=== PATIENT | male | born 1980 | race Caucasian/White ===

== ENCOUNTER → 2024-11-21 | Outpatient (BNVA) | payer OTHER, SELFPAY | END | disposition home or self-care (01) | PROVIDERS: PCP Family Medicine; Referring Provider Family Medicine; Visit Provider Urology | DX: N52.9 Male erectile dysfunction, unspecified (principal); N40.1 Benign prostatic hyperplasia with lower urinary tract symptoms; N13.8 Other obstructive and reflux uropathy; R39.198 Other difficulties with micturition; E66.9 Obesity, unspecified; Z68.38 Body mass index [BMI] 38.0-38.9, adult | CPT/HCPCS: 99203; G0463 ==

== ENCOUNTER 2025-03-26 07:40 | Day surgery (SDC) | payer OTHER, SELFPAY ==
[2025-03-25 11:23] VITALS: BMI 38.0
--- NOTE | 2025-03-25 14:38 | SUR.PREOP ---
Health history reviewed with Dr Le.
[2025-03-26] VITALS (7 sets, daily range): BP systolic 98–144; BP diastolic 71–103; PULSE 58–68; RESP 14–20; TEMP 36.5–36.7; O2SAT 95–99; BMI 39.9
--- NOTE | 2025-03-26 09:15 | CHAP ---
Visited with patient and prayed concerning his upcoming procedure.
--- NOTE | 2025-03-26 11:30 | SUR.PHASEII ---
1130 patient arrived to recovery awake and alert, breathing unlabored, vital signs stable, denies pain, dressing intact to groin; sutures, ointment, telfa, gauze, scrotal support, no bleeding noted, denies nausea, report received from Dr. Owens and Naye NIETO
--- NOTE | 2025-03-26 11:38 | ESOP_ITS ---
Date of Procedure 03/26/25 Pre Op Diagnosis Elective sterilization Post Op Diagnosis Same Procedure Bilateral vasectomy Findings Bilateral vas, thickened cord structure left side Procedure Description Indication for procedure this is a 44-year-old gentleman he is with 3 children he desired bilateral vasectomy procedure and complications were discussed with patient in great detail informed consent is obtained he understood very well there is no warranty for permanent sterilization literature regarding bilateral vasectomy was provided to the patient patient was brought to the operating room in a satisfactory condition after appropriate premedication he was put on the operating table in a spine position he was appropriately laci ntified by surgeon and operating room staff site scope and indications of the procedure were reconfirmed with the patient. MAC anesthesia was administrated parts were prepped and draped in the usual sterile fashion . Next the right vas deferens was palpated between 2 fingers and a thumb 2% lidocaine with quarter percent Marcaine was instilled appropriately vertical skin incision was made proper hemostasis was secured. Next the vas deferens was brought into the incision it was from its various fascial coverings between 2 silver clips centimeter of the vas deferens was excised. The lumen of the vas deferens was diathermized with coagulation diathermy distal end of the vas deferens was buried between various fascial layers. Skin was approximated with 3-0 chromic. Similar procedure was repeated on the opposite side. Cord structures were thickened, next this sterile dressings were applied. Pressure bandage was given Patient having tolerated the procedure well and was sent to recovery room in a satisfactory condition to be discharged home with full postoperative instructions were verbally as well as in writing to be followed in urology office in 6 weeks' time. Anesthesia MAC and local Pathology / specimen None Estimated Blood Loss 0.3 Condition Stable Disposition PACU Surgeon Taylor Nava MD Surgical Staff Operation Date: 03/26/25 10:00 Case Staff Anesthesiologist: Rowdy Owens
--- NOTE | 2025-03-26 11:51 | SUR.PHASEII ---
report received from nurse neeru ace. breathing cdi. dressing cdi. pt awake alert and drinking po fluids.
--- NOTE | 2025-03-26 12:15 | SUR.PHASEII ---
dr stone assessed dressing and gave discharge instructions to patient and . pt discharged via wheel chair. vss. dressing cdi. breathing even and unlabored. denies pain and nausea. discharge instructions gone over and both verbalized understanding. all belongings taken.
== END 2025-03-26 12:15 | disposition home or self-care (01) ==
PROVIDERS: PCP Family Medicine; Referring Provider Urology; Visit Provider Urology
PROC: (CPT 55250; principal; 2025-03-26 09:45)
DX: Z30.2 Encounter for sterilization (principal)
CPT/HCPCS: 55250; A4649; J1885; J2250; J2704; J3010; J3490; A9270

== ENCOUNTER → 2025-04-04 | Outpatient (CLI) | payer OTHER, SELFPAY ==
--- NOTE | 2025-04-04 17:00 | XR_ITS ---
Examination: CT maxillofacial, without intravenous contrast. 2-D sagittal reconstructions. 3-D reconstructions. Date and time of exam: April 04, 2025, 1715 hours INDICATIONS: Sinus pressure and pain months, chronic sinus infections, history deviated septum CTDI: vol (mGy): 17.5 DLP: (mGycm): 273 Technique: Multiple axial images of maxillofacial region, 3.0 mm slice thickness. 2-D sagittal and coronal reconstructions. 3-D reconstructions. Low dose protocols were performed. One or more of the following dose reduction techniques were used; automated exposure control, adjustment of the mA and/or KV according to patient size, use of iterative reconstruction technique. Findings: Moderate mucosal thickening frontal air cells Moderate mucosal thickening ethmoid air cells No occlusion ostiomeatal complexes Significant hypertrophy left inferior nasal turbinate Deviation upper portion nasal septum into the left 6 mm Trace mucosal thickening in the maxillary antra and sphenoid air cells Mild bilateral chronic mastoiditis Negative for otitis media, negative for acquired cholesteatoma Optic globes exhibit symmetry No nasopharyngeal mass IMPRESSION: Chronic sinusitis Deviation upper portion of nasal septum to the left 6 mm Prominent hypertrophy left inferior nasal turbinate.
== END | disposition home or self-care (01) ==
LOC: SCAT 16:57
PROVIDERS: PCP Family Medicine; Referring Provider Family Medicine; Visit Provider Family Medicine
DX: J32.9 Chronic sinusitis, unspecified (principal); J34.2 Deviated nasal septum; J34.3 Hypertrophy of nasal turbinates
CPT/HCPCS: 70486